=== PATIENT | male | born 1960 | race Caucasian/White ===

== ENCOUNTER → 2018-06-19 20:39 | Outpatient (REF) | payer OTHER, SELFPAY ==
[2018-06-19 21:17] LABS: Cholesterol 204 mg/dL (50-200); HDL Cholesterol 54 mg/dL (40-60); LDL CHOLESTEROL 136 mg/dL (<100); Triglyceride 103 mg/dL (30-150)
== END ==
LOC: NCHCN 20:39
PROVIDERS: Visit Provider Internal Medicine
DX: Z00.00 Encounter for general adult medical examination without abnormal findings (principal); Z95.2 Presence of prosthetic heart valve; Z79.01 Long term (current) use of anticoagulants
CPT/HCPCS: 80061; 83721

== ENCOUNTER 2020-04-21 14:30 | Outpatient (CLI) | payer OTHER, SELFPAY ==
[2020-04-24 20:01] LABS: SARS-CoV-2 RNA Undetected (Undetected); SARS-CoV-2 Specimen Source Nasopharynx
== END 2020-04-21 14:50 ==
PROVIDERS: PCP Internal Medicine; Visit Provider Internal Medicine
DX: Z11.59 Encounter for screening for other viral diseases (principal)
CPT/HCPCS: U0003

== ENCOUNTER 2020-08-04 14:30 | Outpatient (REF) | payer OTHER, SELFPAY ==
[2020-08-04 21:16] LABS: Calculated LDL 132 mg/dL (<100); Cholesterol 223 mg/dL (<200); Glucose 87 mg/dL (74-106); HDL Cholesterol 47 mg/dL (40-60); Triglyceride 222 mg/dL (<150)
[2020-08-07 10:00] LABS: PSA, Screening 0.4 ng/mL (0.0-4.5)
== END 2020-08-04 14:50 ==
LOC: NCHCN 14:30
PROVIDERS: PCP Internal Medicine; Visit Provider Internal Medicine
DX: E78.5 Hyperlipidemia, unspecified (principal); R73.9 Hyperglycemia, unspecified; Z12.5 Encounter for screening for malignant neoplasm of prostate
CPT/HCPCS: 80061; 82947; 84153

== ENCOUNTER 2021-01-17 22:40 | Outpatient (REF) | payer OTHER, SELFPAY ==
[2021-01-17 23:02] LABS: C-Reactive Protein < 0.05 mg/dL (0.0-0.3)
[2021-01-18 14:06] LABS: ESR 3 mm/hr (<or=20)
== END 2021-01-17 22:41 | disposition home or self-care (01) ==
LOC: NCHCN 22:40
PROVIDERS: PCP Internal Medicine; Visit Provider Internal Medicine
DX: R68.84 Jaw pain (principal)
CPT/HCPCS: 85652; 86140

== ENCOUNTER 2021-08-09 14:58 | Outpatient (REF) | payer OTHER, SELFPAY ==
[2021-08-09 14:54] LABS: Anion Gap 9.7 mmol/L (3-11); BUN 19 mg/dL (7-18); CO2 26.3 mmol/L (21.0-32.0); Calcium 9.1 mg/dL (8.5-10.1); Chloride 106 mmol/L (98-107); Glucose 101 mg/dL (74-106); Potassium 4.3 mmol/L (3.5-5.1); Sodium 142 mmol/L (136-145)
[2021-08-09 17:03] LABS: INR 2.2 (0.9-1.1); Prothrombin Time 22.1 sec (9.3-11.0)
[2021-08-09 20:11] LABS: Calculated LDL 141 mg/dL (<100); Cholesterol 222 mg/dL (<200); HDL Cholesterol 50 mg/dL (40-60); Triglyceride 158 mg/dL (<150)
== END 2021-08-09 14:59 | disposition home or self-care (01) ==
LOC: NCHCN 14:58
PROVIDERS: PCP Internal Medicine; Visit Provider Internal Medicine
DX: E78.5 Hyperlipidemia, unspecified (principal); Z00.00 Encounter for general adult medical examination without abnormal findings; Z79.01 Long term (current) use of anticoagulants
CPT/HCPCS: 80048; 80061; 85610

== ENCOUNTER 2021-10-23 09:36 | Outpatient (REF) | payer OTHER, SELFPAY ==
[2021-10-23 15:32] LABS: Prothrombin Time 41.6 sec (9.3-11.0)
[2021-10-23 15:55] LABS: INR 4.3 (0.9-1.1)
== END 2021-10-23 09:37 | disposition home or self-care (01) ==
LOC: NCHCN 09:36
PROVIDERS: PCP Internal Medicine; Visit Provider Internal Medicine
DX: I35.1 Nonrheumatic aortic (valve) insufficiency (principal); Z95.2 Presence of prosthetic heart valve; Z79.01 Long term (current) use of anticoagulants
CPT/HCPCS: 85610

== ENCOUNTER 2022-08-12 07:32 | Outpatient (REF) | payer OTHER, SELFPAY ==
[2022-08-12 15:28] LABS: ALT 31 U/L (16-63); AST 27 U/L (15-37); Albumin 4.2 g/dL (3.4-5.0); Alkaline Phosphatase 62 U/L (46-116); Anion Gap 8.9 mmol/L (3-11); BUN 16 mg/dL (7-18); Bilirubin, Total 0.8 mg/dL (0.2-1.0); CO2 24.1 mmol/L (21.0-32.0); CREATININE 1.1 mg/dL (0.70-1.30); Calculated LDL 88 mg/dL (<100); Chloride 106 mmol/L (98-107); Cholesterol 159 mg/dL (<200); Estimated GFR 75.43 (mL/min/1.73m2); Glucose 110 mg/dL (74-106); HDL Cholesterol 56 mg/dL (40-60); Sodium 139 mmol/L (136-145); Total Protein 7.5 g/dL (6.4-8.2); Triglyceride 76 mg/dL (<150)
[2022-08-12 15:43] LABS: INR 1.9 (0.9-1.1); Prothrombin Time 18.3 sec (9.3-11.0)
[2022-08-12 15:55] LABS: Hemoglobin A1C 5.4 % (<5.7)
== END 2022-08-12 07:33 | disposition home or self-care (01) ==
LOC: NCHCN 07:32
PROVIDERS: PCP Internal Medicine; Visit Provider Internal Medicine
DX: E78.5 Hyperlipidemia, unspecified (principal); R73.01 Impaired fasting glucose; Z00.00 Encounter for general adult medical examination without abnormal findings; Z79.01 Long term (current) use of anticoagulants
CPT/HCPCS: 80053; 80061; 83036; 85610